=== PATIENT | male | born 1935 | race Hispanic/Latino ===

== ENCOUNTER 2017-12-11 11:40 | Outpatient (CLI) | payer MEDICARE, OTHER ==
--- NOTE | 2017-12-11 13:17 | MRI ---
MRI LUMBAR SPINE WITHOUT CONTRAST: Technique: Multiplanar, multisequence MRI images were obtained of the lumbar spine. Indications: Low back pain. Lower extremity claudication. Bilateral leg weakness. Comparison: None. FINDINGS: Lumbar vertebrae maintain height. Vertebral body signal is normal. There is no evidence of edema or c ompression. Slight anterolisthesis of L4-5 is noted. Alignment is otherwise preserved. L1-2: Mild disc bulge flattens the thecal sac. Mild facet and ligamentous hypertrophy. Mild central c anal stenosis. L2-3: Broad based disc bulge is more prominent. Facet and ligamentous hypertrophy is prominent. These changes result in a moderate central canal stenosis. L3-4: Broad based disc bulge. Facet and ligamentous hypertrophy is prominent. Moderate to severe cent ral canal stenosis at this level. L4-5: Slight anterolisthesis is noted above. The associated diffuse disc bulge is prominent. Facet an d ligamentous hypertrophy is prominent. Severe central canal stenosis at this level. Bilateral forami nal stenosis, more pronounced on the left. L5-S1: Mild diffuse disc bulge. Facet hypertrophy. No significant central canal stenosis although yudelka ateral foraminal narrowing is present due to the broad based disc bulge and facet hypertrophy. IMPRESSION: 1. Severe central canal stenosis at L4-5 as described. Moderate to severe stenosis at L3-4 and mild t o moderate stenosis at L2-3 as described. POS: [facility]
== END 2017-12-11 11:41 | disposition home or self-care (01) ==
LOC: MRI 11:40
PROVIDERS: ATTEND Family Medicine
DX: I73.9 Peripheral vascular disease, unspecified (principal); M48.061 Spinal stenosis, lumbar region without neurogenic claudication
CPT/HCPCS: 72148

== ENCOUNTER 2018-09-18 03:22 | Outpatient (CLI) | payer MEDICARE ==
[2018-09-18 10:14] LABS: Hemoglobin 10.7 g/dL (14.0-18.0); Mean Corpuscular HGB CONC 33.4 g/dL (32.0-36.0); Mean Corpuscular Hemoglobin 31.4 pg (27.0-31.0); Mean Corpuscular Volume 94.1 fL (78.0-98.0); Mean Platelet Volume 7.1 fL (7.4-10.4); Platelet Count 246 thou/uL (130-400); Red Blood Cell (RBC) Count 3.42 mill/uL (4.70-6.10); White Blood Cell (WBC) Count 7.2 thou/uL (4.8-10.8)
[2018-09-18 10:37] LABS: Anion Gap 12 mmol/L (10-20); BUN (Urea Nitrogen) 23 mg/dL (8.4-25.7); Calc. Creatinine Clearance 0 mL/min (70-130); Calcium 9.9 mg/dL (7.8-10.44); Carbon Dioxide 28 mmol/L (23-31); Chloride 102 mmol/L (98-107); Estimated GFR-MDRD 63; Glucose 174 mg/dL (83-110); Potassium 4.2 mmol/L (3.5-5.1); Sodium 138 mmol/L (136-145)
== END 2018-09-18 03:23 | disposition home or self-care (01) ==
LOC: LABBT 03:22
PROVIDERS: ATTEND Neurological Surgery
DX: Z01.812 Encounter for preprocedural laboratory examination (principal); M43.16 Spondylolisthesis, lumbar region; M54.16 Radiculopathy, lumbar region
CPT/HCPCS: 80048; 85027

== ENCOUNTER 2018-09-27 05:39 | Day surgery (SDC) | payer MEDICARE ==
[2018-09-18 09:14] VITALS: BMI 25.8
--- NOTE | 2018-09-26 23:04 | HP ---
HISTORY OF PRESENT ILLNESS: Mr. Rodriguez is a very pleasant gentleman, who presents for evaluation of low back pain, neurogenic claudication, and lumbar radiculopathy, which he has had for many years. He treated this with injections, therapy, and medications that are slowly losing efficacy and hopes to treat this surgically if possible. He brings an MRI from [place] that reveals grade 1 spondylolisthesis at L4 and L5 with severe central canal stenosis as well as moderate to severe foraminal stenosis at the same level. PAST MEDICAL HISTORY: Significant for hypertension coronary arterial disease, glaucoma, and diabetes. ALLERGIES: NO KNOWN DRUG ALLERGIES. MEDICATIONS: Simvastatin, metformin, glipizide, lisinopril, Ecotrin, and Neurontin. PAST SURGICAL HISTORY: Pacemaker placement. PHYSICAL EXAMINATION: GENERAL: The patient is alert and oriented x3. Gait is mildly antalgic. EXTREMITIES: Lower extremity motor exam reveals full motor strength in the bilateral lower extremities. Reflexes are equal and present bilaterally at the biceps tendon and the patellar tendons. ASSESSMENT: Lumbar spondylolisthesis with back pain and neurogenic claudication. PLAN: Dr. Rolnad met with the patient, reviewed imaging, and advocated for an L4-L5 decompression and fusion. He explained to the patient the risks, benefits, and alternatives to the procedure. The patient expressed understanding and elected to move forward with surgery as discussed. I do believe the patient is mentally competent and capable of making medical decisions for himself. We will move forward with surgery as planned. Job ID: [id number]
[2018-09-27] MEDS ORDERED: Bupivacaine HCl 0.5%/Epinephrine 1:200,000/PF 30 ml Vial ONE (06:15)
[2018-09-27] MEDS ORDERED: Thrombin 5000 UNITS/5 ML VIAL ONE (06:15)
[2018-09-27] MEDS ORDERED: Fentanyl 100 MCG/2 ML VIAL ONE ×2 (06:30→09:52)
[2018-09-27] MEDS ORDERED: Ondansetron PF 4 MG/2 ML Vial ONE ×3 (06:47→15:50)
[2018-09-27] MEDS ORDERED: Scopolamine 1.5 mg/72 hour Patch ONE (06:48)
[2018-09-27] MEDS ORDERED: Tamsulosin HCl 0.4 MG CAP ONE (09:17)
[2018-09-27] MEDS ORDERED: Promethazine HCl 25 MG/ML VIAL ONE (09:30)
--- NOTE | 2018-09-27 10:10 | OP ---
DATE OF PROCEDURE: 09/27/2018 [facility] WORKER: Donald Paul PA-C. INDICATION: Pain. DIAGNOSIS: Lumbar stenosis with lumbar spondylolisthesis of L4-L5. ANESTHESIA: General. PROCEDURES PERFORMED: L4-L5 decompression, L4-L5 facetectomies, L4-L5 posterolateral instrumented fusion, placement of allograft, and placement of autograft. DESCRIPTION OF PROCEDURE: The patient was brought into the operating room and placed under general anesthesia. He was flipped from the supine to prone position on the operating room table. A linear incision was planned over L4-L5. After prepping and draping and after an appropriate preoperative pause, the incision was created. The soft tissues were swept away from midline. Self-retaining retractors were placed in the wound for optimal exposure. After confirming appropriate levels with C-arm fluoroscopy, the L4-L5 segment was decompressed by removing the spinous process, the lamina, and the facet joints bilaterally. With the aid of C-arm fluoroscopy, pedicle screws were then placed in the L4 and L5 bilaterally. Intraoperative 3D CT scan was performed to confirm appropriate placement of hardware. Allograft and autograft material was then placed within the lateral confines of the instrumentation construct. The wound was then irrigated. Hemostasis was maintained throughout. The rods were then placed across the screw heads and final tightened with set screws. The wound was then closed in anatomic layers and a pressure dressing was applied. There were no known procedural complications. Job ID: [id number]
[2018-09-27] MEDS ORDERED: HYDROcodone/Acetaminophen 5/325 mg Tablet ONE (13:36)
[2018-09-27] MEDS ORDERED: Glycopyrrolate 0.2 MG/ML 5 ML SYRINGE ONE (15:50)
[2018-09-27] MEDS ORDERED: PROPOFOL 200 MG/20 ML VIAL ONE (15:50)
[2018-09-27] MEDS ORDERED: PHENYLEPHRINE-NS 100 MCG/ML 10 ML SYRINGE ONE (15:50)
[2018-09-27] MEDS ORDERED: Lidocaine 2% PF 5 ML VIAL ONE (15:50)
[2018-09-27] MEDS ORDERED: Rocuronium Bromide 10 MG/ML (10ML VIAL) ONE (15:50)
[2018-09-27] MEDS ORDERED: Dexamethasone 20 MG/5 ML VIAL ONE (15:50)
== END 2018-09-27 13:55 | disposition home or self-care (01) ==
LOC: SDC 05:39
PROVIDERS: ATTEND Neurological Surgery
PROC: 0SG0071 Fusion of Lumbar Vertebral Joint with Autologous Tissue Substitute, Posterior Approach, Posterior Column, Open Approach (ICD-10-PCS; principal; 2018-09-27)
DX: M48.062 Spinal stenosis, lumbar region with neurogenic claudication (principal); M43.16 Spondylolisthesis, lumbar region; M54.16 Radiculopathy, lumbar region; I10 Essential (primary) hypertension; I25.10 Atherosclerotic heart disease of native coronary artery without angina pectoris; E11.9 Type 2 diabetes mellitus without complications; Z79.82 Long term (current) use of aspirin; Z79.84 Long term (current) use of oral hypoglycemic drugs; Z79.899 Other long term (current) drug therapy; Z95.0 Presence of cardiac pacemaker
CPT/HCPCS: 20930; 20936; 22612; 22840; 76000; C1713 ×2; J0131; J0670; J0690; J1100; J2001; J2405; J2550; J2704; J3010

== ENCOUNTER 2019-06-10 08:49 | Emergency (ER) | payer MEDICARE ==
--- NOTE | 2019-06-10 09:54 | RAD ---
EXAM: Single view of the chest HISTORY: Right flank pain COMPARISON: 09/28/2014 FINDINGS: Single view of the chest shows an enlarged but stable cardiomediastinal silhouette. The pa cemaker is unchanged in position. There is no evidence of consolidation, mass, or pleural effusion. Degenerative changes are seen in the spine. IMPRESSION: No evidence of acute cardiopulmonary disease
[2019-06-10 10:20] LABS: ALT (SGPT) 32 U/L (8-55); AST (SGOT) 23 U/L (5-34); Alkaline Phosphatase 73 U/L (40-110); Anion Gap 15 mmol/L (10-20); BUN (Urea Nitrogen) 32 mg/dL (8.4-25.7); Bilirubin, Total 0.4 mg/dL (0.2-1.2); Calc. Creatinine Clearance 0 mL/min (70-130); Calcium 9.5 mg/dL (7.8-10.44); Carbon Dioxide 25 mmol/L (23-31); Chloride 104 mmol/L (98-107); Estimated GFR-MDRD 56; Glucose 231 mg/dL (83-110); Potassium 4.1 mmol/L (3.5-5.1); Sodium 140 mmol/L (136-145)
--- NOTE | 2019-06-10 10:59 | CT ---
CT of abdomen and pelvis: 06/10/2019 COMPARISON: 05/15/2012 HISTORY: Right-sided flank pain TECHNIQUE: Axial CT imaging at 5 mm intervals from lung bases through pubic symphysis without contras t. Coronal reformatted imaging obtained. FINDINGS: Lack of contrast media limits assessment of the viscera, bowel, vascular structures, and fo r lymphadenopathy. Incompletely imaged transvenous pacing device present. The imaged lung bases demonstrate subcentimeter stable nodules within the peripheral aspect of the le ft lower lobe inferiorly as well as within the inferior lateral aspect of the right middle lobe. No free intraperitoneal air or fluid. The hepatic parenchyma is diffusely hypodense, evidence of steatosis. There is a new heterogeneous ma ss lesion within the right lobe of the liver extending into the region of the liver dome measuring at least 5.8 cm in transverse dimension. The gallbladder, pancreas, and spleen appear grossly unremarkable. Bilateral adrenal glands are unrem arkable. No evidence for nephrolithiasis or obstructive uropathy is appreciated on either side. Limited assessment of the bowel appears unremarkable. There is diffuse atherosclerotic calcification of the abdominal aorta and its branches. Review of the osseous structures demonstrates bilateral L4 and L5 pedicle screws with vertically orie nted interlocking rods. Multilevel vacuum disc formation noted within the lower thoracic spine and within the lumbar spine. There is mild anterolisthesis of L4 on L5. No worrisome lytic or blastic bon e lesions. IMPRESSION: No evidence for nephrolithiasis or obstructive uropathy. Hepatic steatosis. New ill-defin ed hypodense mass lesion within the right lobe of the liver measuring up to 5.8 cm, suspicious for malignancy. Further assessment with CT abdomen with and without contrast using hepatic mass protocol advised. Dr. Ag made aware at 10:55 AM 06/10/2019.
[2019-06-10 11:17] LABS: Bilirubin Negative (Negative); Blood, Urine Negative (Negative); Clarity Clear (Clear); Glucose, Urine (Dipstick) 200 mg/dL (Negative); Leukocyte Negative Leu/uL (Negative); Nitrite Negative (Negative); Protein, Urine (Dipstick) Negative (Neg-Trace); Urobilinogen Normal mg/dL (Less than 2)
[2019-06-10 11:50] LABS: Hemoglobin 10.5 g/dL (14.0-18.0); Mean Corpuscular HGB CONC 33.2 g/dL (32.0-36.0); Mean Corpuscular Hemoglobin 30.6 pg (27.0-31.0); Mean Corpuscular Volume 92.2 fL (78.0-98.0); Platelet Count 252 thou/uL (130-400); RBC Distribution Width 13.1 % (11.5-14.5); Red Blood Cell (RBC) Count 3.44 mill/uL (4.70-6.10); White Blood Cell (WBC) Count 5.9 thou/uL (4.8-10.8)
[2019-06-10 12:18] LABS: Band 4 % (5-11); Eosinophils 5 % (0-10); Lymphocytes 29 % (21-51); MDiff Complete? YES; Monocytes 6 % (0-10); Neutrophil 54 % (42-75); Platelet Morphology Comment Appears Adequate; RBC Morphology Normal
--- NOTE | 2019-06-14 11:11 | EKG ---
Test Reason : FLANK PAIN Blood Pressure : / mmHG Vent. Rate : 063 BPM Atrial Rate : 063 BPM P-R Int : 192 ms QRS Dur : 178 ms QT Int : 470 ms P-R-T Axes : 044 114 -28 degrees QTc Int : 480 ms Atrial-sensed ventricular-paced rhythm Abnormal ECG Confirmed by PEREZ HURTADO ([id number]), supervising editor trailer MEAGAN PIERRE ([id number]) on 06/14/2019 11:10:42 AM Referred By: Confirmed By:PEREZ HURTADO
== END 2019-06-10 12:10 | disposition home or self-care (01) ==
LOC: ERS 08:49
DX: R16.0 Hepatomegaly, not elsewhere classified (principal); E11.9 Type 2 diabetes mellitus without complications; E78.5 Hyperlipidemia, unspecified; E78.00 Pure hypercholesterolemia, unspecified; I10 Essential (primary) hypertension
CPT/HCPCS: 36415; 71045; 74176; 80053; 81003; 85025; 93005; 96360

== ENCOUNTER 2019-06-12 09:57 | Outpatient (CLI) | payer MEDICARE ==
--- NOTE | 2019-06-12 11:59 | CT ---
CT ABDOMEN WITH AND WITHOUT CONTRAST: HISTORY: Liver mass. COMPARISON: CT abdomen pelvis without contrast dated 06/10/2019. FINDINGS: Tiny nodules in the lung bases are stable since 05/15/2012. The spleen, pancreas, adrenal glands and kidneys are normal. No calcified gallstones are seen. Changes of fatty infiltration of the liver are present with a heterogeneously enhancing 5.8 cm mass i n the right lobe extending to the dome of the liver. No free air, free fluid or lymphadenopathy seen in the abdomen. There are vascular calcifications wit hout evidence of aneurysmal dilatation of the abdominal aorta. There are postop changes in the lower lumbar spine. IMPRESSION: Right liver lobe mass is suspicious for malignancy/metastatic disease. This exam was interpreted in consultation with Dr Carlos Clemons who agrees this mass is amenable to C T guided biopsy. Transcribed Date/Time: 06/12/2019 12:08 PM
== END 2019-06-12 09:58 | disposition home or self-care (01) ==
LOC: SCSCT 09:57
PROVIDERS: ATTEND Family Medicine
DX: R16.0 Hepatomegaly, not elsewhere classified (principal)
CPT/HCPCS: 74170; 82565

== ENCOUNTER 2019-07-02 08:35 | Day surgery (SDC) | payer MEDICARE ==
[2019-07-01 12:48] VITALS: BMI 24.8
[2019-07-02] MEDS ORDERED: Fentanyl 100 MCG/2 ML VIAL ONE (08:52)
[2019-07-02] MEDS ORDERED: Sodium Bicarbonate 2.5 MEQ/5 ML VIAL ONE (08:52)
[2019-07-02] MEDS ORDERED: Midazolam HCl 2 mg/2 ml Vial ONE (08:52)
[2019-07-02 08:55] LABS: INR-International Normal Ratio 0.9; PTT 29.4 SEC (22.9-36.1); Prothrombin Time 12.1 SEC (12.0-14.7)
[2019-07-02 09:44] VITALS: BP 153/72; TEMP 98.7
--- NOTE | 2019-07-02 11:51 | CT ---
CT-guided biopsy liver mass Conscious sedation: At least 40 minutes were spent with the patient for conscious sedation. HISTORY: Liver mass. FINDINGS: After explaining the procedure and answering all questions, limited CT imaging of the large liver mass was performed. Sterile technique, buffered local anesthesia, CT guidance, conscious sedation, and an anterior approa ch were used to carefully advance a 17-gauge trocar needle into the heterogeneous mass in the anterior segment right liver lobe. Position was confirmed with CT imaging. Multiple 18-gauge core biopsy specimens were obtained and submitted to Dr. Tobin from pathology. Ellie gnant cells were not visible on touch prep. Needle was repositioned in a different portion of the mass for additional sampling. Multiple 18-gauge specimens were obtained. Needle was removed. No evide nce of complication. Patient tolerated the procedure well and was returned to the holding area in good condition for further imaging. IMPRESSION: Technically successful CT-guided biopsy right liver lobe mass. Pathology is pending. If the pathology findings and do not adequately explain a reason for the liver mass seen on imaging, the most likely diagnosis would be an atypical hemangioma. In that case, please consider radionucleotide liver hemangioma scan for additional evaluation.
== END 2019-07-02 12:17 | disposition home or self-care (01) ==
LOC: RAD 08:35
PROVIDERS: ATTEND Family Medicine
PROC: 0FB13ZX Excision of Right Lobe Liver, Percutaneous Approach, Diagnostic (ICD-10-PCS; principal; 2019-07-02)
DX: R16.0 Hepatomegaly, not elsewhere classified (principal); K76.0 Fatty (change of) liver, not elsewhere classified; E11.9 Type 2 diabetes mellitus without complications; I25.10 Atherosclerotic heart disease of native coronary artery without angina pectoris; I44.1 Atrioventricular block, second degree; E78.2 Mixed hyperlipidemia; I10 Essential (primary) hypertension; E78.00 Pure hypercholesterolemia, unspecified; Z87.891 Personal history of nicotine dependence; Z79.82 Long term (current) use of aspirin; Z79.84 Long term (current) use of oral hypoglycemic drugs; Z79.899 Other long term (current) drug therapy; Z95.0 Presence of cardiac pacemaker
CPT/HCPCS: 36415; 47000; 77012; 85610; 85730; 88307; 88333; J2250; J3010

== ENCOUNTER 2019-07-18 07:25 | Outpatient (CLI) | payer MEDICARE ==
--- NOTE | 2019-07-18 11:50 | PET ---
PET CT: HISTORY: An 83-year-old male with well-differentiated hepatocellular carcinoma. Exam requested for initial st aging. TECHNIQUE: PET scanning with CT attenuation correction is performed from the base of the brain through the proxi mal thighs following the intravenous administration of 12.2 mCi [id number] in the right a ntecubital fossa. FINDINGS: Correlation is made with the CT scan of 06/12/2019. There is mild hypermetabolic activity peripheral aspects of the right liver lobe mass seen on the CT scan with an SUV of 3.4. There is a small hypermetabolic right hilar lymph node with an SUV of 3.2. No jim hypermetabolism is seen in the mediastinum, neck, left hilar region, axillae, abdomen, or pe lvis. No hypermetabolic pulmonary nodules, adrenal, or skeletal lesions are seen. There is physiologic activity in the GI and tracts. The colonic uptake is in a pattern generally seen in patients on metformin. The CT scan used for attenuation correction demonstrates no evidence of pleural effusions or ascites. There is increased uptake due to postop change in the lower lumbar spine. IMPRESSION: 1. Findings are consistent with hepatocellular carcinoma. 2. Nonspecific hypermetabolic small right hilar lymph node. POS: [facility]
== END 2019-07-18 07:26 | disposition home or self-care (01) ==
LOC: PET 07:25
PROVIDERS: ATTEND Internal Medicine Hematology & Oncology
DX: C22.0 Liver cell carcinoma (principal)
CPT/HCPCS: 78815; A9552

== ENCOUNTER 2021-02-16 07:12 | Day surgery (SDC) | payer MEDICARE ==
[2021-02-15 13:02] VITALS: BMI 23.3
[2021-02-16 08:23] VITALS: TEMP 98.6
[2021-02-16 12:43] VITALS: BP 154/77
== END 2021-02-16 09:40 | disposition home or self-care (01) ==
LOC: RAD 07:12
PROVIDERS: ATTEND Specialist
PROC: B02B1ZZ Computerized Tomography (CT Scan) of Spinal Cord using Low Osmolar Contrast (ICD-10-PCS; principal; 2021-02-16)
DX: M51.16 Intervertebral disc disorders with radiculopathy, lumbar region (principal); M47.26 Other spondylosis with radiculopathy, lumbar region; M48.062 Spinal stenosis, lumbar region with neurogenic claudication; M46.1 Sacroiliitis, not elsewhere classified; M96.1 Postlaminectomy syndrome, not elsewhere classified; M48.04 Spinal stenosis, thoracic region; M48.07 Spinal stenosis, lumbosacral region; I70.0 Atherosclerosis of aorta; E11.9 Type 2 diabetes mellitus without complications; E78.00 Pure hypercholesterolemia, unspecified; E78.2 Mixed hyperlipidemia; I10 Essential (primary) hypertension; I25.10 Atherosclerotic heart disease of native coronary artery without angina pectoris; I44.1 Atrioventricular block, second degree; N40.0 Benign prostatic hyperplasia without lower urinary tract symptoms; Z87.891 Personal history of nicotine dependence; Z79.84 Long term (current) use of oral hypoglycemic drugs; Z79.899 Other long term (current) drug therapy; Z88.5 Allergy status to narcotic agent; Z95.0 Presence of cardiac pacemaker; Z98.1 Arthrodesis status
CPT/HCPCS: 62304; 72132

== ENCOUNTER 2021-05-16 08:33 | Outpatient (CLI) | payer MEDICARE | END 2021-05-16 08:34 | disposition home or self-care (01) | LOC: MRI 08:33 | PROVIDERS: ATTEND Internal Medicine Hematology & Oncology | DX: C22.0 Liver cell carcinoma (principal); K86.2 Cyst of pancreas | CPT/HCPCS: 74183 ==

== ENCOUNTER 2021-10-31 09:57 | Outpatient (CLI) | payer MEDICARE | END 2021-10-31 09:58 | disposition home or self-care (01) | LOC: RAD 09:57 | PROVIDERS: ATTEND Neurological Surgery | DX: M48.062 Spinal stenosis, lumbar region with neurogenic claudication (principal); M47.816 Spondylosis without myelopathy or radiculopathy, lumbar region; Z98.1 Arthrodesis status | CPT/HCPCS: 72100 ==

== ENCOUNTER 2021-11-04 08:43 | Outpatient (CLI) | payer MEDICARE ==
[2021-11-04] MEDS ORDERED: Magnevist 469MG/ML 20 ML VIAL ONE (11:19)
== END 2021-11-04 08:44 | disposition home or self-care (01) ==
LOC: MRI 08:43
PROVIDERS: ATTEND Internal Medicine Hematology & Oncology
DX: C22.0 Liver cell carcinoma (principal)
CPT/HCPCS: 74183; A9579

== ENCOUNTER 2021-11-16 07:47 | Outpatient (CLI) | payer MEDICARE | END 2021-11-16 07:48 | disposition home or self-care (01) | LOC: RAD 07:47 | PROVIDERS: ATTEND Specialist | DX: M51.16 Intervertebral disc disorders with radiculopathy, lumbar region (principal); M47.26 Other spondylosis with radiculopathy, lumbar region; Z98.890 Other specified postprocedural states | CPT/HCPCS: 72120 ==

== ENCOUNTER 2021-12-20 12:19 | Outpatient (CLI) | payer MEDICARE | END 2021-12-20 12:20 | disposition home or self-care (01) | LOC: MRI 12:19 | PROVIDERS: ATTEND Specialist | DX: M51.36 Other intervertebral disc degeneration, lumbar region (principal); M47.816 Spondylosis without myelopathy or radiculopathy, lumbar region; M25.78 Osteophyte, vertebrae; M51.26 Other intervertebral disc displacement, lumbar region; M51.35 Other intervertebral disc degeneration, thoracolumbar region; M47.815 Spondylosis without myelopathy or radiculopathy, thoracolumbar region; M48.061 Spinal stenosis, lumbar region without neurogenic claudication; M24.28 Disorder of ligament, vertebrae; M51.37 Other intervertebral disc degeneration, lumbosacral region; M48.07 Spinal stenosis, lumbosacral region; M51.87 Other intervertebral disc disorders, lumbosacral region; M51.86 Other intervertebral disc disorders, lumbar region; Z98.1 Arthrodesis status | CPT/HCPCS: 72148 ==

== ENCOUNTER 2022-06-06 10:50 | Outpatient (CLI) | payer MEDICARE ==
[~2022-06-06 10:50] MED LIST: Magnevist 469MG/ML 20 ML VIAL ONE
== END 2022-06-06 10:51 | disposition home or self-care (01) ==
LOC: MRI 10:50
PROVIDERS: ATTEND Internal Medicine Hematology & Oncology
DX: C22.0 Liver cell carcinoma (principal)
CPT/HCPCS: 74183; A9579